=== PATIENT | female | born 1975 | race Caucasian/White ===

== ENCOUNTER 2018-03-15 12:54 | Emergency (ER) | payer BC ==
[~2018-03-15] VITALS: Ht 165.1 cm; Wt 78.0 kg
[2018-03-15 13:33] LABS: CLARITY URINE CLOUDY (CLEAR); COLOR URINE DARK YELLOW (YELLOW); KETONES URINE NEGATIVE (NEGATIVE); LEUKOCYTE ESTERASE URINE 3+ (NEGATIVE); NITRITE URINE POSITIVE (NEGATIVE); OCCULT BLOOD URINE TRACE (NEGATIVE); PH URINE 6.5 (4.5-8.0); PROTEIN URINE TRACE (NEGATIVE); SPECIFIC GRAVITY URINE 1.014 (1.005-1.030); UROBILINOGEN URINE 0.2 E.U./dL (0.2-1.0)
[2018-03-15] MEDS ORDERED: PHENAZOPYRIDINE HCL 200MG TABLET PO ONE (18:30)
[2018-03-15] MEDS ORDERED: LEVOFLOXACIN 500MG TABLET PO ONE (18:30)
[2018-03-15 19:01] VITALS: BP 125/62
== END 2018-03-15 19:19 | disposition home or self-care (01) ==
LOC: ER 12:54
DX: N39.0 Urinary tract infection, site not specified (principal); E66.9 Obesity, unspecified; I10 Essential (primary) hypertension; F17.200 Nicotine dependence, unspecified, uncomplicated; Z68.28 Body mass index [BMI] 28.0-28.9, adult
CPT/HCPCS: 81003; 81025; 87077; 87086; 87186; 99284

== ENCOUNTER 2018-11-03 21:55 | Emergency (ER) | payer SELFPAY ==
[~2018-11-03] VITALS: Ht 165.1 cm; Wt 72.0 kg
[2018-11-04 00:23] LABS: CLARITY URINE CLOUDY (CLEAR); COLOR URINE YELLOW (YELLOW); KETONES URINE NEGATIVE (NEGATIVE); LEUKOCYTE ESTERASE URINE 3+ (NEGATIVE); NITRITE URINE POSITIVE (NEGATIVE); OCCULT BLOOD URINE TRACE (NEGATIVE); PH URINE 7.5 (4.5-8.0); PROTEIN URINE TRACE (NEGATIVE); SPECIFIC GRAVITY URINE 1.017 (1.005-1.030)
[2018-11-04] MEDS ORDERED: AMOXICILLIN/POTASSIUM CLAVULANATE 875/125MG TAB PO ONE (00:45)
[2018-11-04] MEDS ORDERED: ACETAMINOPHEN 325MG TABLET PO ONE (00:45)
[2018-11-04] MEDS ORDERED: KETOROLAC 60MG/2ML VIAL IM ONE (00:45)
[2018-11-04 01:10] VITALS: BP 124/70
== END 2018-11-04 01:15 | disposition home or self-care (01) ==
LOC: ER 21:55
DX: N10 Acute pyelonephritis (principal); F17.210 Nicotine dependence, cigarettes, uncomplicated
CPT/HCPCS: 81003; 81025; 87077; 87086; 87186; 96372; 99283; J1885